=== PATIENT | male | born 1955 | race Caucasian/White ===

== ENCOUNTER → 2018-04-21 | Outpatient (CLI) | payer OTHER ==
[~2018-04-21] MED LIST: ALBU8.5H IH; AZIT-1 PO; BENZ200C15 PO; BUDE90AE2 IH; CICL6.1H7 IH; CLIN300C99 PO; GUAI120L3 PO; HYDR-653 PO; LEVA15HF IH; PANT40TA65 PO; PRED20TA6 PO
--- NOTE | 2018-04-21 10:02 | RADIOLOGY IMAGING REPORT ---
FACILITY: [facility] - [place] PATIENT NAME: Dain Bolanos : 1955 MR: [id number] V: [id number] EXAM DATE: [id number] ORDERING PHYSICIAN: JOAO MOREAU TECHNOLOGIST: Location: [facility] Patient: Dain Bolanos : 1955 Visit/Account:[id number] Date of Sevice: 04/21/2018 Exam type: CHEST PA AND LAT History: Cough x5 weeks with phlegm, worse at night Comparison: July 27, 2015. Findings: There are nodular areas of increased density projecting over the upper lung brantley. This appears mor e prominent when compared the prior study. They may simply represent overlapping shadows from the pa tient's ribs however an apical lordotic view is recommended for further evaluation. Otherwise no cortney dence of pulmonary consolidation pleural effusions or pulmonary edema. Cardiac silhouette is normal in size IMPRESSION: 1. Nodular densities project over the upper lung brantley slightly more prominent when compared the pr ior study. Different diagnosis would include superimposed shadows from overlapping ribs versus true nodules. An apical lordotic view the chest is recommended Report Dictated By: Nadia Morales MD at 04/21/2018 9:55 AM Report E-Signed By: Nadia Morales MD at 04/21/2018 9:58 AM [id number]
== END ==
LOC: RAD 08:13
PROVIDERS: ATTEND Nurse Practitioner Primary Care
DX: R05 Cough (principal)
CPT/HCPCS: 71046

== ENCOUNTER → 2018-04-21 | Outpatient (CLI) | payer OTHER ==
--- NOTE | 2018-04-21 13:04 | RADIOLOGY IMAGING REPORT ---
FACILITY: [facility] - [place] PATIENT NAME: Dain Bolanos : 1955 MR: [id number] V: [id number] EXAM DATE: ORDERING PHYSICIAN: JOAO MOREAU TECHNOLOGIST: Location: [facility] - [place] Patient: Dain Bolanos : 1955 Visit/Account:[id number] Date of Sevice: 04/21/2018 EXAMINATION: Portable chest radiograph single view at 12:02 PM. HISTORY: Cough for 5 weeks. Follow-up question of nodules on chest x-ray earlier today. COMPARISON: Chest radiograph from earlier the same day. FINDINGS: A single portable AP apical lordotic view of the chest is obtained. Lines/tubes: None. Lungs/pleura: No focal consolidation or pleural effusion. No definite pulmonary nodule is identified . Heart: Negative. Mediastinum: Negative. Bony structures/body wall: There is suggestion of a healing or healed fracture of the right second r ib. IMPRESSION: No evidence of pulmonary nodule is seen on this radiograph. Nodular findings seen on the prior radiog raph are probably secondary to superimposed bones/joints and probable healing or healed fracture of t he right second rib. Report Dictated By: Aaron Oliva MD at 04/21/2018 12:51 PM Report E-Signed By: Aaron Oliva MD at 04/21/2018 12:58 PM WSN:[id number]
== END ==
LOC: RAD 11:34
PROVIDERS: ATTEND Nurse Practitioner Primary Care
DX: R05 Cough (principal)
CPT/HCPCS: 71046

== ENCOUNTER → 2018-10-19 | Outpatient (REF) | LOC: AUD 08:30 | PROVIDERS: ATTEND Internal Medicine | DX: Z01.12 Encounter for hearing conservation and treatment (principal) | CPT/HCPCS: 92552 ==